=== PATIENT | female | born 1995 | race Asian ===

== ENCOUNTER 2017-08-28 06:25 | Day surgery (SDC) | payer OTHER ==
[~2017-08-28 06:25] MED LIST: Acetaminophen TAB* 325 MG PO ONE; Buffered Lidocaine 0.9% SYRIN* 5 ML/SYR SYRINGE INTRADERM ONE; Dexamethasone IV* 4 MG/ML 1 ML (4 MG) IV SLOW PU ONE; Famotidine IV* 10 MG/ML 2 ML (20 mg) IV ONE
[2017-08-28] MEDS ORDERED: Acetaminophen TAB* 325 MG ONE (06:50)
[2017-08-28] MEDS ORDERED: Famotidine IV* 10 MG/ML 2 ML (20 mg) ONE (06:50)
[2017-08-28] MEDS ORDERED: Dexamethasone IV* 4 MG/ML 1 ML (4 MG) ONE (06:50)
[2017-08-28] MEDS ORDERED: Phenylephrine INJ* 10 MG/ML 1 ML VIAL (10 MG) ONE (06:51)
[2017-08-28] MEDS ORDERED: fentaNYL* 50 MCG/ML 2 ML VIAL (100 MCG VIAL) ONE (06:51)
[2017-08-28] MEDS ORDERED: Ketorolac INJ* 30 MG/ML 1 ML VIAL ONE (06:51)
[2017-08-28] MEDS ORDERED: Midazolam* 1 MG/ML 2 ML VIAL (2 MG) ONE (06:51)
[2017-08-28] MEDS ORDERED: Propofol* 10 MG/ML 20 ML BTL IV PUSH ONE (06:51)
[2017-08-28] MEDS ORDERED: Lidocaine 2% PF * 5 ML VIAL ONE (06:51)
[2017-08-28] MEDS ORDERED: Ondansetron INJ* 2 MG/ML VIAL ONE (06:51)
[2017-08-28] MEDS ORDERED: Buffered Lidocaine 0.9% SYRIN* 5 ML/SYR SYRINGE ONE (06:51)
[2017-08-28] MEDS ORDERED: ceFAZolin 2 GM in 100 MLS NS (*) BAG IVPB ONE (06:51)
[2017-08-28] MEDS ORDERED: Bupivacaine 0.5% SDV PF* 10-30ML VIAL ONE ×2 (07:06→07:37)
[2017-08-28] MEDS ORDERED: Scopolamine 1.5 mg* PATCH ONE (07:24)
[2017-08-28] MEDS ORDERED: Bupivacaine 0.25% SDV* 30 ML ONE (07:37)
[2017-08-28] MEDS ORDERED: Ondansetron INJ* 2 MG/ML VIAL IV PRN (07:42)
[2017-08-28] MEDS ORDERED: HYDROmorphone INJ* 1 MG/ML CARPUJECT SYRINGE IV PRN (07:42)
[2017-08-28] MEDS ORDERED: diPHENhydraMINE IV* 50 MG/ML 1 ml VIAL (BENADRYL) IV PRN (07:42)
[2017-08-28] MEDS ORDERED: Naloxone* 0.4 MG/ML 1 ML VIAL IV PRN (07:42)
[2017-08-28] MEDS ORDERED: Scopolamine 1.5 mg* PATCH TRANSDERM PRN (07:42)
[2017-08-28] MEDS ORDERED: fentaNYL* 50 MCG/ML 2 ML VIAL (100 MCG VIAL) IV PRN (07:42)
[2017-08-28] MEDS ORDERED: oxyCODONE TAB* 5 MG TAB PO PRN (07:42)
[2017-08-28] MEDS ORDERED: PROCHLORPERAZINE INJ 5 MG/ML 2 ML VIAL IV PRN (07:42)
[2017-08-28 08:46] VITALS: BP 105/84
--- NOTE | 2017-08-28 23:54 | OP ---
DATE OF OPERATION: 08/28/17 [facility] DATE OF : [birth year] SURGEON: James Macdonald MD SHIPPING ROOM HELPER: TIFFANIE Houser, whose assistance was necessary for positioning, retraction, help with instrumentation, and closure. ANESTHESIOLOGIST: Juanita Hardy MD ANESTHESIA: LMA with local anesthesia provided by the surgeon. PRE-OP DIAGNOSIS: Painful deep hardware of left ankle. POST-OP DIAGNOSIS: Painful deep hardware of left ankle. OPERATIVE PROCEDURE: Removal of deep left ankle hardware. INDICATIONS: Fabiola had prior bimalleolar ankle fracture, which I repaired. She does have some pain from the hard-torres prominence laterally at the ankle and decided that she would like to have the hardware removed. Both operative and non-operative treatment alternatives were reviewed further, the nature and risks of surgery were reviewed in careful detail. Discussions regarding the risks of surgery included but were not limited to infection, wound problems, nerve injury, neuroma, RSD, persistent symptoms, blood clot, need for further surgery, failure of the surgery, and even the remote chance of catastrophic complication including loss of limb. IMPLANTS: None. TOURNIQUET TIME: Less than 30 minutes with an ankle Esmarch tourniquet. SPECIMENS: None. ESTIMATED BLOOD LOSS: Minimal. COMPLICATIONS: None. STATUS: Stable from the operating room to the recovery room and then home. DESCRIPTION OF PROCEDURE: The patient was seen in the preoperative holding unit and an informed written consent was obtained. The appropriate extremity was marked. The patient was then brought to the operating room and carefully positioned on the operating room table. Anesthesia was induced. All bony prominences were padded with great care. A chlorhexidine based pre-scrub was performed, followed by ChloraPrep and prep and drape in standard sterile fashion. Surgical safety pause was then conducted in which we confirmed the appropriate patient, extremity, planned procedure, availability of equipment, indication, and administration of prophylactic antibiotics, and DVT prophylaxis in the form of compression boot on the non-surgical extremity. I began with an application of an ankle Esmarch tourniquet above the planned incision site. Care was taken to avoid areas that would be involved in the surgery. I then used the prior incision about 8 cm over the lateral ankle at the distal fibula. Dissection was taken down to the level of the distal fibula and plate with care taken to protect the superficial peroneal nerve, which was not visualized during the procedure. I dissected out the hardware and used small fragment screw electric lift truck driver to remove the screws and Dodge elevator to elevate off the plate. The lag screw was then removed as well. A rongeur was used to smooth off the distal fibula. The bone was well healed on inspection. The wound was then copiously irrigated and closed in layered fashion utilizing 3-0 Monocryl and 3- 0 nylon and then placed in a sterile dressing, 0.5% plain Marcaine was used to provide a local block. The patient was then awakened from anesthesia and transferred to the recovery room in stable condition. There were no complications. All needle and sponge counts were correct at the end of the case. ATTESTATION: I attest that I was present, scrubbed and performed the critical portion of the procedure myself. POSTOPERATIVE PLAN: The patient may be weightbearing as tolerated in an Aircast boot, although to limit her activities while awaiting the incision to heal. I will see her back in 2 weeks for likely suture removal and application of Steri- Strips and progression of her activities. [id number]/[facility] #: [id number] ABDIRAHMAN
[2017-08-31] MEDS ORDERED: Scopolamine PATCH Remove* 1 NOTE MISC PATCH OFF ONE (07:44)
== END 2017-08-28 09:15 | disposition home or self-care (01) ==
LOC: OR 06:25
PROVIDERS: ATTEND Orthopaedic Surgery
DX: T84.84XA Pain due to internal orthopedic prosthetic devices, implants and grafts, initial encounter (principal); Y83.1 Surgical operation with implant of artificial internal device as the cause of abnormal reaction of the patient, or of later complication, without mention of misadventure at the time of the procedure; S82.842S Displaced bimalleolar fracture of left lower leg, sequela; X58.XXXS Exposure to other specified factors, sequela
CPT/HCPCS: 81025; 88300; A9270-GY; J1100; J1885; J2250; J2405; J2704; J3010